=== PATIENT | male | born 1950 ===

== ENCOUNTER 2023-08-05 23:04 | Observation (INO) | payer MEDICARE, OTHER, SELFPAY ==
[2023-08-05 16:47] VITALS: BP 124/79; BMI 28.0
[2023-08-05 17:12] LABS: Urine Albumin Negative (Neg - Trace); Urine Bilirubin Negative (Negative); Urine Character Slightly Cloudy (Clear); Urine Color Yellow; Urine Glucose Negative (Negative); Urine Ketone Negative (Negative); Urine Leukocyte Negative (Negative); Urine Nitrite Negative (Negative); Urine Occult Blood Negative (Negative); Urine Specific Gravity 1.015 (<1.030); Urine Urobilinogen Negative (Neg - 1+)
[2023-08-05 17:13] LABS: % Basophils 0.4 % (0-2); % Eosinophils 0.4 % (0-6); % Immature Granulocytes 0.4 % (0-0.5); % Monocytes 9.8 % (1.7-9.3); Absolute Lymphocytes 0.5 10^3/uL (1.2-3.4); Absolute Monocytes 0.9 10^3/uL (0.1-0.6); Absolute Neutrophils 7.4 10^3/uL (1.4-6.5); Hematocrit 36.3 % (39.0-52.0); Hemoglobin 12.5 g/dL (13.0-18.0); Mean Corp Hgb Conc. 34.4 g/dL (33.0-37.0); Mean Corpuscular Hgb 31.4 pg (27.0-31.0); Mean Corpuscular Volume 91.2 fL (80.0-94.0); Mean Platelet Volume 9.8 fL (7.4-10.4); Nucleated Red Blood Cells % 0 % (-); Platelet Count 361 10^3/uL (130-400); Red Blood Cell Count 3.98 10^6/uL (4.70-6.10); Red Cell Dist. Width 13.6 % (11.5-14.5)
[2023-08-05 17:36] LABS: ALT (SGPT) 22 U/L (0-50); AST (SGOT) 24 U/L (17-59); Alkaline Phosphatase 42 U/L (38-126); Blood Urea Nitrogen 20 mg/dl (9-20); Calcium 9.8 mg/dl (8.4-10.2); Carbon Dioxide 30 mmol/L (22-30); Chloride 101 mmol/L (98-107); Estimated Creatinine Clearance 81 ml/min; Glucose 118 mg/dl (70-99); Lipase 52 U/L (23-300); Potassium 4.6 mmol/L (3.5-5.1); Sodium 134 mmol/L (135-145); Total Bilirubin 0.5 mg/dl (0.2-1.3); Total Protein 6.7 g/dl (6.3-8.2); eGFR > 60.00
--- NOTE | 2023-08-05 18:30 | ED.GENMED ---
History of Present Illness
General
Chief Complaint: Abdominal Pain
Source: patient
Exam Limitations: none
Time Seen by Provider: 08/05/23 18:10
Nursing documentation reviewed up to this point in time: agreed with
Travel History
Have you had any contact with someone who has COVID-19?: No
Do you have any symptoms of coronavirus? Fever > 100 degrees, chills, cough, shortness of breath, sore throat, loss of taste or smell, muscle aches, or headache?: No
History of Present Illness
History of Present Illness:
71 yr old male with past medical history of prostate cancer currently treat with hormone therapy and proton radiation therapy at [facility] (has had approximate 25 treatments )presents to the ER for evaluation of abdominal pain. Patient reports he has
had some intermittent dull achy pain over the past several days but today pain intensified in the right lower quadrant. He denies any nausea vomiting fever chills.
He denies any constipation. Denies any urinary frequency urgency or dysuria.
Review of Systems
Review of Systems
Allergies reviewed?: Yes
All Other Systems: ROS reviewed and negative except as documented in HPI and ROS
Constitutional: Reports no symptoms; Denies fever, fatigue or chills
EENT: Reports no symptoms
Respiratory: Reports no symptoms
Cardiac: Reports no symptoms
ABD/GI: Reports abdominal pain; Denies nausea, vomiting or diarrhea
: Reports no symptoms
Musculoskeletal: Reports no symptoms
Skin: Reports no symptoms
Neurological: Reports no symptoms
Hematologic/Lymphatic: Reports no symptoms
Psychiatric: Reports no symptoms
Phy Exam
General Physical Exam
General Presentation: no apparent distress
General age: appears stated age
General Skin: warm and dry
General Habitus: normal
General Mental: alert
General Hydration: appears well hydrated
Gastrointestinal Exam
Gastrointestinal Exam: soft and other (tender rlq )
Neurological Exam
Neurological Exam: alert and oriented x3
Musculoskeletal Exam
Musculoskeletal Exam: full ROM
Skin Exam
Skin Exam: normal color and warm/dry
Psychiatric Exam
Psychiatric Exam: normal mood/affect
Course
Orders/Labs/Results
Orders:
Orders
08/05/23 17:04
Complete Blood Count/With Diff Urgent
Comprehensive Metabolic Panel Urgent
Lipase Urgent
Urinalysis Reflex To Culture Urgent
Date Specimen was Collected: 08/05/23
Time Specimen was Collected: 16:54
08/05/23 18:41
CT Abd/Pel (IV only)-DH only Urgent
Comment:
Reason For Exam: rlq pain
08/05/23 18:49
0.9% Sodium Chloride 1000 ml [Nss] 1,000 ml IV BOLUS
08/05/23 19:28
Ketorolac [Toradol] 15 mg IV NOW STA
08/05/23 21:55
Lactate Level [Lactic Acid] Urgent
08/05/23 22:06
Lactic Acid Urgent
08/05/23 22:10
Morphine Sulfate 4 mg IV NOW STA
Abnormal Lab Results
08/05/23
17:04
RBC 3.98 L 10^6/uL
(4.70-6.10)
Hgb 12.5 L g/dL
(13.0-18.0)
Hct 36.3 L %
(39.0-52.0)
MCH 31.4 H pg
(27.0-31.0)
Absolute Neuts (auto) 7.4 H 10^3/uL
(1.4-6.5)
Absolute Lymphs (auto) 0.5 L 10^3/uL
(1.2-3.4)
Absolute Monos (auto) 0.9 H 10^3/uL
(0.1-0.6)
Neutrophils % 83.0 H %
(42.2-75.2)
Lymphocytes % 6.0 L %
(20.5-51.1)
Monocytes % 9.8 H %
(1.7-9.3)
Sodium 134 L mmol/L
(135-145)
Glucose 118 H mg/dl
(70-99)
08/05/23 17:04
08/05/23 17:04
Vital Signs
Initial and Last Documented VS:
Initial Vital Signs
Temp Pulse Resp BP Pulse Ox
97.8 F 88 16 124/79 100
08/05/23 16:47 08/05/23 16:47 08/05/23 16:47 08/05/23 16:47 08/05/23 16:47
Last Documented Vital Signs
Temp Pulse Resp BP Pulse Ox
97.8 F 88 16 124/79 100
08/05/23 16:47 08/05/23 16:47 08/05/23 16:47 08/05/23 16:47 08/05/23 16:47
MDM/Problems Addressed
Differential Diagnosis Includes:
Not limited to appendicitis diverticulitis
MDM/Problems Addressed:
73 yr. old male with history of prostate cancer getting proton radiation therapy at [facility] presents to the ER with right lower quadrant pain for the past 12 hours denies any fever or chills. He is tender on exam. He has no UTI symptoms. He is
afebrile with a normal white count negative urinalysis no testicular pain. CAT scan shows bowel thickening of the ileum with edema within the wall and adjacent inflammatory stranding the differential includes acute radiation enteritis or vascular
ischemia due to vessel occlusion or hypotension.
I reviewed this with ED attending, patient is nontoxic-appearing however will need to monitor hydrate and provide pain management will check lactic acid. Will admit patient to the hospital service
Chronic conditions affecting care:
prostate cancer
*Radiology
Radiology exam reviewed: radiology read reviewed
*Critical Care Note
Total Time (30-74mins, 75-104mins- exclusive of procedures): Not Applicable
ED Attending Note
-
Portions of this chart may have been created with voice recognition software.� Occasional wrong word or��sound alike� substitutions may have occurred due to the inherent limitations of voice recognition software.
Discharge Plan
Departure
Patient Disposition: Admit
Date of Disposition: 08/05/23
Time of Disposition: 22:19
Admit to: Med/Surg
Admit to doctor: hospitalist
Presentation/result/management discussed w/ accepting MD/DO: Hospitalist
Patient with high blood pressure during this ER visit?: No
Condition: Fair
Covid-19: Not Applicable
Discharge Problem:
Abdominal pain
Referrals:
Milton Corea MD [Family Provider] -
Interventions
Interventions:
*Risk Screen - Suicide Last Done: 08/05/23 16:47
*Neglect/Abuse Screening Last Done: 08/05/23 16:47
*ED COVID-19 Vaccine History Last Done: 08/05/23 16:47
Discharge Date and Time
Print Language: ITALIAN
[2023-08-05] MEDS: NSS 1000 IV (19:01)
[2023-08-05] MEDS: TORADOL 15 MG IV (19:30)
[2023-08-05] MEDS: MORPHINE SULFATE 4 MG IV (22:27)
[2023-08-05 22:51] LABS: Lactic Acid 0.8 mmol/L (0.7-2.0)
--- NOTE | 2023-08-05 22:56 | HPS.HSE ---
Family Physician
-
Family Physician: Milton Corea
Chief Complaint
-
abdominal pain
History of Present Illness
71-year-old male past medical history of prostate cancer on hormone therapy/proton radiation therapy at [place] (received 27 treatments), hypertension, hypercholesteremia, presenting with abdominal pain. He has had dull achy pain over the past week
but today pain intensified in the right lower quadrant. He denies any nausea or vomiting or fevers or chills.
Patient is supposed to receive 44 treatments of radiation therapy and usually receives radiation from Tuesday to Tuesday. His last treatment was on Tuesday and he is supposed to resume radiation at [place] on Tuesday. Since starting radiation he has
been having some diarrhea/constipation. His last bowel was yesterday. He denies any diarrhea at this time.
Drinks alcohol socially. He denies smoking or marijuana use.
Medical History
Past Medical History
Past Medical History: Reports Other (prostate cancer on hormone therapy/proton radiation therapy at [place] (received 27 treatments), hypertension, hypercholesteremia)
Past Surgical History: Reports None
Social History
Tobacco: Non-smoker
Alcohol: Occasional
Drug: None
Family History
Family History: Not pertinent
Allergies / Home Medications
Allergies reflects when Allergies were last updated in [employer].
Home Medications with original date entered in [employer]
Allergy/Medication List:
Allergies
Allergy/AdvReac Type Severity Reaction Status Date / Time
No Known Allergies Allergy Unverified 08/05/23 16:52
Home Medications
abiraterone 250 mg tablet 1,000 mg PO DAILY 08/05/23
acetaminophen 650 mg tablet,extended release (Tylenol 8 Hour) 1,300 mg PO Q8HPRN PRN mild pain 08/05/23
aspirin 81 mg tablet,delayed release 81 mg PO DAILY 08/05/23
atorvastatin 40 mg tablet (Lipitor) 40 mg PO DAILY 08/05/23
calcium carbonate 500 mg-vitamin D3 10 mcg (400 unit) tablet (Calcium 500 + D) 1 tab PO BID 08/05/23
fenofibrate micronized 160 mg tablet 160 mg PO DAILY 08/05/23
leuprolide (3 month) 22.5 mg (3 month) intramuscular suspension 0 mg IM [id number] 08/05/23
lisinopril 20 mg-hydrochlorothiazide 12.5 mg tablet 1 tab PO DAILY 08/05/23
lorazepam 0.5 mg tablet 0.5 mg PO DAILYPRN PRN mri testing 08/05/23
metoprolol succinate 50 mg tablet,extended release 24 hr (Toprol XL) 75 mg PO DAILY 08/05/23
polyethylene glycol 3350 17 gram oral powder packet (Miralax) 17 g PO DAILYPRN PRN constipation 08/05/23
prednisone 5 mg tablet 5 mg PO DAILY 08/05/23
tamsulosin 0.4 mg capsule (Flomax) 0.4 mg PO HS 08/05/23
Review of Systems
-
History Source: Patient
A 12 point ROS was completed and negative except as noted: Yes
Constitutional: Reports No Symptoms
EENT: Reports No Symptoms
Respiratory: Reports No Symptoms
Cardiac: Reports No Symptoms
Abdomen/GI: Reports See HPI
: Reports No Symptoms
Musculoskeletal: Reports No Symptoms
Skin: Reports No Symptoms
Neurological: Reports No Symptoms
Endocrine: Reports No Symptoms
Hematologic/Lymphatic: Reports No Symptoms
Psych: Reports No Symptoms
Physical Exam
Vital Signs
Vital Signs
Temp Pulse Resp BP Pulse Ox
97.8 F 88 16 124/79 100
08/05/23 16:47 08/05/23 16:47 08/05/23 16:47 08/05/23 16:47 08/05/23 16:47
Physical Exam
General: Well Developed, Well Nourished and No Apparent Distress
HEENT: NormoCephalic, Moist mucous membranes and Atraumatic
Respiratory: Clear
Cardiac: S1/S2 and Regular Rhythm; No Murmur or Rub
GI: Soft, Non Distended, Normal Bowel Sounds and Tender (RLQ ); No Organomegaly
Rectal: Deferred by Provider
Musculoskeletal: No Clubbing, No Cyanosis and No Edema
Skin: No Rash
Neuro: Nonfocal/grossly intact
Laboratory Results
-
08/05/23 17:04
08/05/23 17:04
Laboratory Results
Lactic Acid 0.8 mmol/L (0.7-2.0) 08/05/23 22:31
Total Bilirubin 0.5 mg/dl (0.2-1.3) 08/05/23 17:04
AST 24 U/L (17-59) 08/05/23 17:04
ALT 22 U/L (0-50) 08/05/23 17:04
Alkaline Phosphatase 42 U/L (38-126) 08/05/23 17:04
Lipase 52 U/L (23-300) 08/05/23 17:04
Data Reviewed
-
Lab Data: Labs Reviewed by me
Old Records: Reviewed
Impression/Plan
-
IMPRESSION:
PLAN:
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
-Patient nontoxic-appearing without signs of sepsis or diarrhea to suggest small bowel ischemia
-CT abdomen pelvis shows bowel wall thickening of the ileum with edema within the wall, adjacent inflammatory stranding differentials include acute radiation enteritis or vascular ischemia
-Lactate pending
-Urinalysis negative
-N.p.o.
-IV fluids given
-Continue as needed MiraLAX
-GI consulted
Prostate cancer on hormone therapy/proton radiation therapy
-Continue Zytiga, leuprolide
-Continue prednisone
-Continue tamsulosin
Essential hypertension
-Continue lisinopril/hydrochlorothiazide
-Continue metoprolol
-Continue prophylactic
Hypercholesterolemia
-Continue statin, fenofibrate
Full code
DVT prophylaxis�SCDs
N.p.o.
[2023-08-05 22:58] VITALS: BP 107/70
[2023-08-05 23:30] VITALS: BP 144/90; BMI 28.0
--- NOTE | 2023-08-05 23:50 | TRANSFER ---
2330 received pt from ED to room 418-2, pt was able to walk from stretcher to bed with no assistance. AAOx3. VSS. Pt oriented to the room. Call franklin placed within reach.
[2023-08-06] MEDS: FLOMAX 0.400000000000000022 MG PO ×2 (01:13→21:29)
[2023-08-06] MEDS: TYLENOL 650 MG PO (06:22)
[2023-08-06 07:00] VITALS: BP 114/69
[2023-08-06 07:08] LABS: % Basophils 0.5 % (0-2); % Eosinophils 1.8 % (0-6); % Immature Granulocytes 0.3 % (0-0.5); % Lymphocytes 9.6 % (20.5-51.1); % Monocytes 11.7 % (1.7-9.3); % Neutrophils 76.1 % (42.2-75.2); Absolute Eosinophils 0.1 10^3/uL (0-0.7); Absolute Lymphocytes 0.6 10^3/uL (1.2-3.4); Absolute Monocytes 0.8 10^3/uL (0.1-0.6); Absolute Neutrophils 4.9 10^3/uL (1.4-6.5); Hematocrit 30.9 % (39.0-52.0); Hemoglobin 10.6 g/dL (13.0-18.0); Mean Corp Hgb Conc. 34.3 g/dL (33.0-37.0); Mean Corpuscular Hgb 31.5 pg (27.0-31.0); Nucleated Red Blood Cells % 0 % (-); Platelet Count 270 10^3/uL (130-400); Red Blood Cell Count 3.36 10^6/uL (4.70-6.10); Red Cell Dist. Width 13.5 % (11.5-14.5); White Blood Cell Count 6.5 10^3/uL (4.8-10.8)
[2023-08-06 07:32] LABS: ALT (SGPT) 17 U/L (0-50); AST (SGOT) 18 U/L (17-59); Albumin 3.1 g/dl (3.5-5.0); Alkaline Phosphatase 39 U/L (38-126); Blood Urea Nitrogen 15 mg/dl (9-20); Calcium 8.8 mg/dl (8.4-10.2); Carbon Dioxide 25 mmol/L (22-30); Chloride 105 mmol/L (98-107); Estimated Creatinine Clearance 108 ml/min; Glucose 93 mg/dl (70-99); Potassium 3.7 mmol/L (3.5-5.1); Sodium 134 mmol/L (135-145); Total Bilirubin 0.7 mg/dl (0.2-1.3); Total Protein 5.5 g/dl (6.3-8.2); eGFR > 60.00
[2023-08-06] MEDS: ASPIR LOW (ENTERIC COATED) 81 MG PO (07:50)
[2023-08-06] MEDS: ORETIC 12.5 MG PO (07:50)
[2023-08-06] MEDS: OSCAL 500 + D 500 MG PO ×2 (07:50→19:43)
[2023-08-06] MEDS: TRICOR 145 MG PO (07:50)
[2023-08-06] MEDS: DELTASONE 5 MG PO (07:50)
[2023-08-06] MEDS: LIPITOR 40 MG PO (07:50)
[2023-08-06] MEDS: ZESTRIL 20 MG PO (07:51)
[2023-08-06] MEDS: TOPROL XL 75 MG PO (07:52)
[2023-08-06] MEDS: NON-FORMULARY ITEM 1000 MG PO (08:25)
[2023-08-06] MEDS: MORPHINE SULFATE 2 MG IV (10:47)
--- NOTE | 2023-08-06 12:15 | W.PN.HOSP.TC ---
Today's Communication/Plan
-
IVF
Pain Control
GI/ ONC eval.
Assessment / Plan
Assessment / Plan
73-year-old male with right lower quadrant abdominal pain
Colonoscopy twelve 2022-2 mm polyp in the cecum, 3 mm polyp in the sigmoid colon, scattered medium mouth diverticula in the sigmoid colon and hepatic flexure
CT scan of the abdomen and pelvis-bowel wall thickening of the ileum with edema within the wall and adjacent inflammatory stranding. Differential includes acute radiation enteritis or vascular ischemia due to vessel occlusion or hypotension.
Gastroenteritis less likely with the focal nature.
Pleasant
Awake and alert
CVS S1 S2 Normal
Chest CTA
Abdomen- Mild tenderness RLQ, BS appreciated.
#Right lower quadrant abdominal pain-likely secondary to radiation enteritis
Though not a CTA - CT Shows - Aorta is patent. There are vascular calcifications. The RONNIE, renal arteries, SMA and celiac axis are patent.Unlikely vascular reasons
Pain control, IV fluids, with enteritis check stool studies if patient has diarrhea and none reported
Supportive Rx.
IVF,Pain control
GI and oncology consulted
# Mild anemia likely secondary to malignancy-Last HB outside was 13
# Mild hyponatremia-follow
# History of prostate cancer on hormone therapy and proton radiation therapy
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
On Zytiga, leuprolide, prednisone and Flomax
Follows at [place] Dr.Arun Chávez/Dr.Neha Turk/.[facility] Rad Onc
Dr.Samuel Root Med Onc
# Hypertension-Hold lisinopril/hydrochlorothiazide, continue metoprolol
(BP Low Normal)
# Hyperlipidemia-continue fenofibrate and atorvastatin
# DVT prophylaxis-Lovenox
# Full code
Discussed with GI
Discussed with nursing
D/W Family at bed side
Discussed that when Pain better we can advance to clears. He is aware that given the CT findings his radiation oncology doctors may change radiation plans.
Will provide the patient with a disc of CT abdomen pelvis
Anticipated Discharge: 24 - 48 hours
Subjective/Interval History
-
Date of Service: August 06, 2023
Objective Data
-
Labs:
Laboratory Results
08/06/23
06:35
WBC 6.5
Hgb 10.6 L
Hct 30.9 L
Plt Count 270 D
Sodium 134 L
Potassium 3.7
Chloride 105
Carbon Dioxide 25
BUN 15
Creatinine 0.6 L
Glucose 93
Calcium 8.8
Total Bilirubin 0.7
AST 18
ALT 17
Alkaline Phosphatase 39
Vital Signs:
Vital Signs
Temp Pulse Resp BP Pulse Ox
98.2 F 89 16 114/69 98
08/06/23 07:00 08/06/23 07:51 08/06/23 07:00 08/06/23 07:51 08/06/23 07:00
I&O
08/05/23 08/06/23 08/07/23
06:59 06:59 06:59
Intake Total 0 / 0
Balance 0 / 0
[2023-08-06] MEDS: D5/0.45%NACL 1000 IV (12:18)
--- NOTE | 2023-08-06 13:17 | CON.GI ---
Consultation
-
Date/Time Consultation Requested: 08/05/2023, 23:50
Date/Time Consultation Performed: 08/06/2023, 13:30
Requesting Provider: Dr. Mcclellan
Performing Provider: Dr. Garcia
Reason for Consultation: radiation enteritis
Medical History
Chief Complaint / HPI
Chief Complaint: abd pain
History of Present Illness:
73 yo M PMH prostate cancer on hormone therapy/proton radiation therapy at [place] (received 27 treatments) p/w RLQ pain. RLQ present last week or so, varies in intensity. Does feel BM relieves the pain. Morphine helps as well. Since starting
radiation he has been having some constipation currently regular last BM yesterday taking miralax prn. No n/v. Still undergoing radiation at [place] is due for appt on Mon he is anxious to go to. Denies sick contacts, NSAID use.
He s/w his rad onc who does state enteritis known s/e and suspects it is related.
CT scan of the abdomen and pelvis-bowel wall thickening of the ileum with edema within the wall and adjacent inflammatory stranding. Differential includes acute radiation enteritis or vascular ischemia due to vessel occlusion or hypotension.
Gastroenteritis less likely with the focal nature
Colonoscopy Dr. Kwon 2022-2 mm polyp in the cecum, 3 mm polyp in the sigmoid colon, scattered medium mouth diverticula in the sigmoid colon and hepatic flexure
Past Medical History
Past Medical History: Cancer (prostate cancer on hormone therapy/proton radiation therapy at [place] (received 27 treatments)), HTN and Hypercholesterolemia
Past Surgical History: None
Social History
Tobacco: Non-Smoker
Alcohol: Occasional
Allergies / Home Medications
Allergy/AdvReac Type Severity Reaction Status Date / Time
No Known Allergies Allergy Unverified 08/05/23 16:52
�Medication �Instructions �Recorded
abiraterone 250 mg tablet 1,000 mg PO DAILY 08/05/23
acetaminophen 650 mg 1,300 mg PO Q8HPRN PRN mild pain 08/05/23
tablet,extended release (Tylenol 8
Hour)
aspirin 81 mg tablet,delayed 81 mg PO DAILY 08/05/23
release
atorvastatin 40 mg tablet (Lipitor) 40 mg PO DAILY 08/05/23
calcium carbonate 500 mg-vitamin 1 tab PO BID 08/05/23
D3 10 mcg (400 unit) tablet
(Calcium 500 + D)
fenofibrate micronized 160 mg 160 mg PO DAILY 08/05/23
tablet
leuprolide (3 month) 22.5 mg (3 0 mg IM [id number] 08/05/23
month) intramuscular suspension
lisinopril 20 1 tab PO DAILY 08/05/23
mg-hydrochlorothiazide 12.5 mg
tablet
lorazepam 0.5 mg tablet 0.5 mg PO DAILYPRN PRN mri testing 08/05/23
metoprolol succinate 50 mg 75 mg PO DAILY 08/05/23
tablet,extended release 24 hr
(Toprol XL)
polyethylene glycol 3350 17 gram 17 g PO DAILYPRN PRN constipation 08/05/23
oral powder packet (Miralax)
prednisone 5 mg tablet 5 mg PO DAILY 08/05/23
tamsulosin 0.4 mg capsule (Flomax) 0.4 mg PO HS 08/05/23
Review of Systems
Vital Signs
Temp Pulse Resp BP Pulse Ox
98.2 F 89 16 114/69 98
08/06/23 07:00 08/06/23 07:51 08/06/23 07:00 08/06/23 07:51 08/06/23 07:00
Physical Exam
Exam
General: Well Developed and Well Nourished
HEENT: Normocephalic
Respiratory: Clear
Cardiac: S1/S2
GI: Non Tender and Non Distended
Neuro: AO x 3
Psych: Calm
Results
WBC 6.5 10^3/uL (4.8-10.8) 08/06/23 06:35
Hgb 10.6 g/dL (13.0-18.0) L 08/06/23 06:35
Hct 30.9 % (39.0-52.0) L 08/06/23 06:35
MCV 92.0 fL (80.0-94.0) 08/06/23 06:35
Plt Count 270 10^3/uL (130-400) D 08/06/23 06:35
Absolute Neuts (auto) 4.9 10^3/uL (1.4-6.5) 08/06/23 06:35
Sodium 134 mmol/L (135-145) L 08/06/23 06:35
Potassium 3.7 mmol/L (3.5-5.1) 08/06/23 06:35
Chloride 105 mmol/L (98-107) 08/06/23 06:35
Carbon Dioxide 25 mmol/L (22-30) 08/06/23 06:35
BUN 15 mg/dl (9-20) 08/06/23 06:35
Creatinine 0.6 mg/dL (0.7-1.3) L 08/06/23 06:35
Calcium 8.8 mg/dl (8.4-10.2) 08/06/23 06:35
Total Bilirubin 0.7 mg/dl (0.2-1.3) 08/06/23 06:35
AST 18 U/L (17-59) 08/06/23 06:35
ALT 17 U/L (0-50) 08/06/23 06:35
Alkaline Phosphatase 39 U/L (38-126) 08/06/23 06:35
Lipase 52 U/L (23-300) 08/05/23 17:04
Diagnostic Image Results:
Prior GI Procedures:
EGD:
Colonoscopy:
Assessment / Plan
-
73 yo M pmh prostate Ca on hormone therapy/proton radiation therapy p/w RLQ pain seen to have inflammation in small bowel per rads thought either ischemic or radiation. Suspect this is radiation enteritis
Lactic acid normal.
Recommendations:
- Bowel rest - will advance to clear liquid diet
- Stool test if diarrhea
- Onc input - pt supposed to have radiation on Tuesday
-
-
Thank you for consultation and allowing me to participate in the patient's care. Please call the semiconductor lab technician GI physician during the after hours with any questions or concerns.
--- NOTE | 2023-08-06 15:10 | CM ---
Patient seen bedside with and daughter, initial assessment completed. Patient resides with his in a 2 story home, one step to enter. Patient denies DME, VN, or SNF history. Patient confirms PCP Milton Corea, [facility] in [place], confirms prescription coverage. [employer] form reviewed, signed, placed in patients chart. Family provided copy of POA paperwork, copy made, placed in patients chart. CM will continue to follow for discharge planning needs.
Plan; home no needs likely.
[2023-08-06 16:14] VITALS: BP 118/66
[2023-08-06] MEDS: MIRALAX 17 GRAMS PO (19:43)
[2023-08-06 23:00] VITALS: BP 100/58
[2023-08-06] MEDS: TYLENOL 1000 MG PO (23:17)
[2023-08-07] MEDS: D5/0.45%NACL 1000 IV (00:48)
[2023-08-07] MEDS: NON-FORMULARY ITEM 1000 MG PO (06:31)
[2023-08-07 07:00] VITALS: BP 94/58
[2023-08-07 07:33] LABS: Hematocrit 35.6 % (39.0-52.0); Hemoglobin 11.8 g/dL (13.0-18.0); Mean Corp Hgb Conc. 33.1 g/dL (33.0-37.0); Mean Corpuscular Hgb 31.6 pg (27.0-31.0); Mean Corpuscular Volume 95.2 fL (80.0-94.0); Platelet Count 303 10^3/uL (130-400); Red Blood Cell Count 3.74 10^6/uL (4.70-6.10); Red Cell Dist. Width 13.9 % (11.5-14.5); White Blood Cell Count 5.3 10^3/uL (4.8-10.8)
[2023-08-07] MEDS: TOPROL XL 75 MG PO (08:05)
[2023-08-07] MEDS: TRICOR 145 MG PO (08:05)
[2023-08-07] MEDS: ASPIR LOW (ENTERIC COATED) 81 MG PO (08:06)
[2023-08-07] MEDS: DELTASONE 5 MG PO (08:06)
[2023-08-07] MEDS: LIPITOR 40 MG PO (08:06)
[2023-08-07] MEDS: OSCAL 500 + D 500 MG PO (08:06)
[2023-08-07 08:15] LABS: Blood Urea Nitrogen 10 mg/dl (9-20); Calcium 9.7 mg/dl (8.4-10.2); Carbon Dioxide 27 mmol/L (22-30); Chloride 105 mmol/L (98-107); Estimated Creatinine Clearance 108 ml/min; Glucose 98 mg/dl (70-99); Potassium 4.2 mmol/L (3.5-5.1); Sodium 136 mmol/L (135-145); eGFR > 60.00
--- NOTE | 2023-08-07 12:53 | W.PN.HOSP.TC ---
Addendum entered and electronically signed by Matthew Berrios MD 08/07/23 14:43:
Dictation-[id number]
Original Note:
Today's Communication/Plan
-
Discharge
Assessment / Plan
Assessment / Plan
73-year-old male with right lower quadrant abdominal pain. No pain today.
Colonoscopy twelve 2022-2 mm polyp in the cecum, 3 mm polyp in the sigmoid colon, scattered medium mouth diverticula in the sigmoid colon and hepatic flexure
CT scan of the abdomen and pelvis-bowel wall thickening of the ileum with edema within the wall and adjacent inflammatory stranding. Differential includes acute radiation enteritis or vascular ischemia due to vessel occlusion or hypotension.
Gastroenteritis less likely with the focal nature.
Pleasant
Awake and alert
CVS S1 S2 Normal
Chest CTA
Abdomen- No tenderness
No pedal edema
#Right lower quadrant abdominal pain-likely secondary to radiation enteritis
Though not a CTA - CT Shows - Aorta is patent. There are vascular calcifications. The RONNIE, renal arteries, SMA and celiac axis are patent.Unlikely vascular reasons
Pain control, IV fluids, with enteritis check stool studies if patient has diarrhea and none reported
Supportive Rx.
Patient has no pain today. So advanced the diet which he seems to be tolerating.
# Mild anemia likely secondary to malignancy-no evidence of any bleeding
# Mild hyponatremia-follow
# History of prostate cancer on hormone therapy and proton radiation therapy
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
On Zytiga, leuprolide, prednisone and Flomax
Follows at [place] Dr.Arun Chávez/Dr.Neha Turk/.[facility] Rad Onc
Dr.Samuel Root Med Onc
# Hypertension-Hold lisinopril/hydrochlorothiazide, continue metoprolol
(BP Low Normal)
# Hyperlipidemia-continue fenofibrate and atorvastatin
# DVT prophylaxis-Lovenox
# Full code
Discussed with GI
Discussed with nursing
D/W Family at bed side
Additional cardiac plan. He is anxious to leave and to be seen by them tomorrow
Anticipated Discharge: Today
Subjective/Interval History
-
Date of Service: August 07, 2023
Objective Data
-
Labs:
Laboratory Results
08/07/23
06:41
WBC 5.3
Hgb 11.8 L
Hct 35.6 L
Plt Count 303
Sodium 136
Potassium 4.2
Chloride 105
Carbon Dioxide 27
BUN 10
Creatinine 0.6 L
Glucose 98
Calcium 9.7
Vital Signs:
Vital Signs
Temp Pulse Resp BP Pulse Ox
98 F 95 16 94/58 95
08/07/23 07:00 08/07/23 08:05 08/07/23 07:00 08/07/23 07:00 08/07/23 07:00
I&O
08/06/23 08/07/23 08/08/23
06:59 06:59 06:59
Intake Total 900 / 900
Balance 900 / 900
--- NOTE | 2023-08-07 13:06 | W.DS.TRANS ---
DC Summary - Radiographic Technologist
-
Discharge Instructions:
Discharge Diagnosis/Procedures Radiation enteritis, prostate cancer,
hypertension, hyperlipidemia
Diet Low Residue
Activity As tolerated
Driving Restrictions As prior to admission
Instructions:
Stand-Alone Forms:
Changes to Home Medications: No
Discharge Medications:
DC Medications w/original date entered in [employer]
abiraterone 250 mg tablet 1,000 mg PO DAILY Cancer 08/05/23
acetaminophen 650 mg tablet,extended release (Tylenol 8 Hour) 1,300 mg PO Q8HPRN PRN mild pain 08/05/23
aspirin 81 mg tablet,delayed release 81 mg PO DAILY Blood Clot Prevention/Tx 08/05/23
atorvastatin 40 mg tablet (Lipitor) 40 mg PO DAILY High Cholesterol 08/05/23
calcium carbonate 500 mg-vitamin D3 10 mcg (400 unit) tablet (Calcium 500 + D) 1 tab PO BID Supplement 08/05/23
fenofibrate micronized 160 mg tablet 160 mg PO DAILY High Cholesterol 08/05/23
leuprolide (3 month) 22.5 mg (3 month) intramuscular suspension 0 mg IM [id number] Hormonal Agent 08/05/23
lisinopril 20 mg-hydrochlorothiazide 12.5 mg tablet 1 tab PO DAILY Blood Pressure 08/05/23
lorazepam 0.5 mg tablet 0.5 mg PO DAILYPRN PRN mri testing 08/05/23
metoprolol succinate 50 mg tablet,extended release 24 hr (Toprol XL) 75 mg PO DAILY Blood Pressure 08/05/23
polyethylene glycol 3350 17 gram oral powder packet (Miralax) 17 g PO DAILYPRN PRN constipation 08/05/23
prednisone 5 mg tablet 5 mg PO DAILY Autoimmune Disorder 08/05/23
tamsulosin 0.4 mg capsule (Flomax) 0.4 mg PO HS Urinary Issue 08/05/23
Home Medication Changes
Pending Results: No
[2023-08-07 13:31] VITALS: BP 110/72
--- NOTE | 2023-08-07 14:06 | CM ---
CM reviewed chart, plan home no needs. CM will continue to follow for discharge planning needs.
Plan; home no needs.
--- NOTE | 2023-08-07 14:14 | CON.ONC ---
Impression
Impression
radiation associated enterititis
Plan
Plan
safe for d/c -- will followup with [facility] tomorrow to discuss subsequent course of therapy-- maintain systemic antihormonal therapies
Patient History
History of Present Illness
73yo WM currently receiving ADT/ Zytiga for stage 4 prostate carcinoma on Proton Beam therapy for pelvic mónica/ prostate disease admitted with RLQ pain and GILDA following scheduled treatments. Imaging noted ileal wall thickening wit adj
inflammatory stranding c/w radiation enteritis improved with bowel rest. He is eating full meals without recurrence of pain
Past-Medical/Surgical History
HTN
Patient Medication
�Medication �Instructions �Recorded �Confirmed �Last Taken �Type
abiraterone 250 mg tablet 1,000 mg PO DAILY Cancer 08/05/23 08/05/23 08/05/23 History
acetaminophen 650 mg 1,300 mg PO Q8HPRN PRN mild pain 08/05/23 08/05/23 08/05/23 History
tablet,extended release (Tylenol 8
Hour)
aspirin 81 mg tablet,delayed 81 mg PO DAILY Blood Clot 08/05/23 08/05/23 08/05/23 History
release Prevention/Tx
atorvastatin 40 mg tablet (Lipitor) 40 mg PO DAILY High Cholesterol 08/05/23 08/05/23 08/05/23 History
calcium carbonate 500 mg-vitamin 1 tab PO BID Supplement 08/05/23 08/05/23 08/05/23 History
D3 10 mcg (400 unit) tablet
(Calcium 500 + D)
fenofibrate micronized 160 mg 160 mg PO DAILY High Cholesterol 08/05/23 08/05/23 08/05/23 History
tablet
leuprolide (3 month) 22.5 mg (3 0 mg IM [id number] Hormonal Agent 08/05/23 08/05/23 50 Days Ago History
month) intramuscular suspension ~06/16/23
lisinopril 20 1 tab PO DAILY Blood Pressure 08/05/23 08/05/23 08/05/23 History
mg-hydrochlorothiazide 12.5 mg
tablet
lorazepam 0.5 mg tablet 0.5 mg PO DAILYPRN PRN mri testing 08/05/23 08/05/23 Unknown History
metoprolol succinate 50 mg 75 mg PO DAILY Blood Pressure 08/05/23 08/05/23 08/05/23 History
tablet,extended release 24 hr
(Toprol XL)
polyethylene glycol 3350 17 gram 17 g PO DAILYPRN PRN constipation 08/05/23 08/05/23 08/04/23 History
oral powder packet (Miralax)
prednisone 5 mg tablet 5 mg PO DAILY Autoimmune Disorder 08/05/23 08/05/23 08/05/23 History
tamsulosin 0.4 mg capsule (Flomax) 0.4 mg PO HS Urinary Issue 08/05/23 08/05/23 08/04/23 History
Review of Systems
-
All Other Systems: Reviewed and Negative
Physical Exam
-
General: Well Nourished and No Apparent Distress
HEENT: Moist Mucous Membranes
Cardiology: Normal Sinus Rhythm
Pulmonary: Clear
GI: Soft and Normal Bowel Sounds
Extremities: Pulses Present
Psych: Calm and Intact Judgement/Insight
Labs
Lab Results
WBC 5.3 10^3/uL (4.8-10.8) 08/07/23 06:41
RBC 3.74 10^6/uL (4.70-6.10) L 08/07/23 06:41
Hgb 11.8 g/dL (13.0-18.0) L 08/07/23 06:41
Hct 35.6 % (39.0-52.0) L 08/07/23 06:41
MCV 95.2 fL (80.0-94.0) H 08/07/23 06:41
MCH 31.6 pg (27.0-31.0) H 08/07/23 06:41
MCHC 33.1 g/dL (33.0-37.0) 08/07/23 06:41
RDW 13.9 % (11.5-14.5) 08/07/23 06:41
Plt Count 303 10^3/uL (130-400) 08/07/23 06:41
MPV 10.0 fL (7.4-10.4) 08/07/23 06:41
Abs Immat Gran (auto) 0.0 10^3/uL (0-0.05) 08/06/23 06:35
Absolute Neuts (auto) 4.9 10^3/uL (1.4-6.5) 08/06/23 06:35
Absolute Lymphs (auto) 0.6 10^3/uL (1.2-3.4) L 08/06/23 06:35
Absolute Monos (auto) 0.8 10^3/uL (0.1-0.6) H 08/06/23 06:35
Absolute Eos (auto) 0.1 10^3/uL (0-0.7) 08/06/23 06:35
Absolute Basos (auto) 0.0 10^3/uL (0-0.2) 08/06/23 06:35
Immature Gran % 0.3 % (0-0.5) 08/06/23 06:35
Neutrophils % 76.1 % (42.2-75.2) H 08/06/23 06:35
Lymphocytes % 9.6 % (20.5-51.1) L 08/06/23 06:35
Monocytes % 11.7 % (1.7-9.3) H 08/06/23 06:35
Eosinophils % 1.8 % (0-6) 08/06/23 06:35
Basophils % 0.5 % (0-2) 08/06/23 06:35
Creatinine 0.6 mg/dL (0.7-1.3) L 08/07/23 06:41
Vital Signs
Vital Signs
Temp Pulse Resp BP Pulse Ox
98 F 72 16 110/72 95
08/07/23 13:31 08/07/23 13:31 08/07/23 13:31 08/07/23 13:31 08/07/23 13:31
== END 2023-08-07 14:04 | disposition home or self-care (01) ==
LOC: 4 WEST ACU 23:04
PROVIDERS: Emergency Medicine; Nurse Practitioner; ADMITTING PHYSICIAN Hospitalist; ATTENDING PHYSICIAN Hospitalist; CONSULT PHYSICIAN Internal Medicine Gastroenterology; CONSULT PHYSICIAN Internal Medicine Hematology & Oncology; EMERGENCY PHYSICIAN Emergency Medicine; FAMILY PHYSICIAN Internal Medicine
DX: K52.0 Gastroenteritis and colitis due to radiation (principal); R10.31 Right lower quadrant pain; R60.9 Edema, unspecified; C61 Malignant neoplasm of prostate; I10 Essential (primary) hypertension; E78.00 Pure hypercholesterolemia, unspecified; N40.0 Benign prostatic hyperplasia without lower urinary tract symptoms; D64.9 Anemia, unspecified; E87.1 Hypo-osmolality and hyponatremia; E78.5 Hyperlipidemia, unspecified; Z79.890 Hormone replacement therapy; Z92.3 Personal history of irradiation; Z79.82 Long term (current) use of aspirin
CPT/HCPCS: 74177; 80048; 80053; 81003; 83605; 83690; 85025; 85027; 96361; 96374; 96375; 99285; G0378; Q9967